=== PATIENT | male | born 1940 | race African-American/Black ===

== ENCOUNTER 2016-04-13 05:52 | Day surgery (SDC) | payer BC ==
--- NOTE | ~2016-04-13 | OP ---
Record Of [facility] [address] [place]. [address] NAME: GUILLAUME ANTHONY : 36 [place] [facility] [place] [id number] AGE: 75 ADM/REG DATE : 04/13/16 MR#: [id number] REPORT SERV DATE: 04/13/16 DICTATED BY: RISA LYNN DATE: 04/13/16 REPORT STATUS : Draft TRANSCRIBED BY: MODL DATE: 04/13/16 DATE OF PROCEDURE: 04/13/2016 PREOPERATIVE DIAGNOSIS: End-stage renal disease. POSTOPERATIVE DIAGNOSIS: End-stage renal disease. PROCEDURE PERFORMED: Creation of left brachiobasilic arteriovenous fistula. SURGEON: Risa Lynn MD. RESIDENT: Hayden Sweeney MD ANESTHESIA: MAC plus local. ESTIMATED BLOOD LOSS: 10 mL. IV FLUIDS: 300 mL of crystalloids. SPECIMENS: None. DRAINS: None. COMPLICATIONS: None. FINDINGS: The patient's left basilic vein was chosen to be suitable during intraoperative ultrasound and end-to-side left brachiobasilic arteriovenous fistula was created. At the completion there was great thrill, as well as the patient still had an excellent radial pulse. INDICATIONS FOR PROCEDURE: This is a 75-year-old male, who suffers from end-stage renal disease, who needs a long-term hemodialysis and access. The patient is currently dialyzing through a right IJ PermCath, so, the above-stated procedure was offered to the patient. Risks, benefits, and alternatives were explained. The patient expressed good understanding and wished to proceed forward with the procedure. DESCRIPTION OF PROCEDURE: After informed consent was obtained, the patient was taken back to the operating theatre, the patient was laid on the operating table in supine position. The patient was given IV analgesia and anaesthesia, once the patient was adequately sedated. The left arm was then prepped and draped in a standard fashion. A formal time-out was then performed, appropriate preoperative antibiotics were administered, all present in the operating room were in agreement, and we elected to proceed with the procedure. We began by performing an intraoperative ultrasound, looking at the patient's radial artery, cephalic vein, brachial artery, and basilic vein. The cephalic vein did not seem adequate for successful AV fistula. The basilic vein had an adequate size, good compressibility, Record Of Operation [facility] [address] [place]. [address] NAME: GUILLAUME ANTHONY : 36 [place] : [place] [facility] [place]#: [id number] AGE: 75 ADM/REG DATE : 04/13/16 MR#: [id number] REPORT SERV DATE: 04/13/16 DICTATED BY: RISA LYNN DATE: 04/13/16 REPORT STATUS : Draft TRANSCRIBED BY: MODL DATE: 04/13/16 therefore, it was chosen. We began by administering local anesthetic, medial aspect of the left upper extremity. An oblique incision was then made in the medial aspect of the left upper extremity over the marked course of the basilic vein and brachial artery. We then used a combination of electrocautery, sharp, and blunt dissection to dissect down and identify the brachial artery and the basilic vein. Both of these were mobilized proximally and distally. IV heparin was then administered. Branches of the basilic vein and of the brachial artery near the site of where our anastomosis would be were suture ligated with 3-0 silk suture. We then tied off the distal end of the basilic vein and sharply transected the basilic vein and proximally to this suture ligation. The basilic vein was then flushed with heparinized saline with an 11 blade to make an arteriotomy in our brachial artery. We then spatulated the end of the basilic vein, as well as heparin and saline flushed it. We then clamped the brachial artery proximally and distally with Profunda clamps. A longitudinal arch arteriotomy was then made in the brachial artery. We then performed our arteriovenous anastomosis in an end-to-side fashion using a running 6-0 Prolene on a BV-1 needle. Just prior to the completion of the anastomosis it was flushed and the anastomosis was then completed and great thrill was noted. We then noted the radial pulse to be palpable distally. We then reapproximated the subcutaneous tissue and fascia of all our incision sites with 3-0 Vicryl in a simple interrupted fashion. We then reapproximated the skin edges with 4-0 Monocryl in a running subcuticular stitch fashion. Dermabond was then placed over the incision site. Hemostasis had been achieved. Again, palpable thrill was appreciated at the end, as well as palpable radial pulse. Sterile drapes were then broken down. The patient was awake and vital signs were stable. The patient was transferred to recovery room in stable condition. DICTATED BY: MD RUPESH Mejias/DANIELA Risa Lynn MD / [id number] CC: MD JONATHAN Bey TYE
[~2016-04-13 05:52] MED LIST: ASAB PO; DIOVAN320 MG PO; DRAMAMINE25 MG PO; FLOMAX4 PO; HCTZ25B PO; HYT5 PO; LOP100 PO; NORV5 PO; PRILO PO; PROTONIX PO; RENA-VITE PO; ROCALTROL0.5 MCG PO; SODBICAR10 PO; TRAZ50 PO; Z300 PO
[2016-04-13 06:30] LABS: HEMATOCRIT 27.5 % (40.0-51.0); HEMOGLOBIN 8.8 g/dL (13.6-17.8)
[2016-04-13 06:41] LABS: CALCIUM, SERUM 9.4 MG/DL (8.5-10.4); CHLORIDE, SERUM 101 MMOL/L (96-112); GFR AFRICAN AMERICAN 12 ML/MIN (>=60); GFR NON AFRICAN AMERICAN 11 ML/MIN (>=60); GLUCOSE, SERUM 90 MG/DL (60-99); POTASSIUM, SERUM 3.5 MMOL/L (3.5-5.3); SODIUM, SERUM 139 MMOL/L (135-148)
[2016-04-13 06:42] LABS: BUN (BLOOD UREA NITROGEN) 24 MG/DL (6-23); CO2 (CARBON DIOXIDE) 30 MMOL/L (24-34); CREATININE 4.89 MG/DL (0.70-1.30)
== END 2016-04-13 16:18 | disposition home or self-care (01) ==
LOC: SDC 05:52
PROVIDERS: Student in an Organized Health Care Education/Training Program
PROC: 03180ZD Bypass Left Brachial Artery to Upper Arm Vein, Open Approach (ICD-10-PCS; principal; 2016-04-13 07:45)
DX: I12.0 Hypertensive chronic kidney disease with stage 5 chronic kidney disease or end stage renal disease (principal); N18.6 End stage renal disease; Z99.2 Dependence on renal dialysis; Z98.890 Other specified postprocedural states; Z87.891 Personal history of nicotine dependence; Z79.82 Long term (current) use of aspirin; Z79.899 Other long term (current) drug therapy
CPT/HCPCS: 80048; 85014; 85018; 93005; J0690; J3010

== ENCOUNTER 2016-05-30 12:23 | Day surgery (SDC) | payer BC ==
--- NOTE | ~2016-05-30 | OP ---
Record Of Operation [facility] [address] [place]. [address] NAME: GUILLAUME ANTHONY : 36 STATUS : [facility]#: [id number] AGE: 75 ADM/REG DATE : 05/30/16 MR#: [id number] REPORT SERV DATE: 05/30/16 DICTATED BY: RISA LYNN DATE: 05/30/16 REPORT STATUS : Draft TRANSCRIBED BY: DANIELA DATE: 05/30/16 DATE OF PROCEDURE: 05/30/2016 SOLAR INSTALLER TECHNICIAN: Mi. PREPROCEDURE DIAGNOSES: 1. End-stage renal disease. 2. Left brachiobasilic fistula. POSTPROCEDURE DIAGNOSES: 1. End-stage renal disease. 2. Left brachiobasilic fistula. PROCEDURE PERFORMED: Elevation of brachiobasilic fistula. ANESTHETIC: MAC and local. SPECIMENS: None. ESTIMATED BLOOD LOSS: Minimal. COMPLICATIONS: None. DESCRIPTION OF PROCEDURE: The patient was brought to the operating room, placed in supine position on the operating room table. The patient had MAC anesthetic without complication. Left arm was prepped and draped in sterile fashion. A time-out was performed. Identified the correct patient, procedure, and site. We began by using ultrasound to map out the course of the AV fistula. We anesthetized the skin with local anesthetic and made an incision longitudinally along the arm. We dissected down through the subcutaneous tissue and fat with the cautery. We divided the fascia with scissors. We found the fistula along its course next of the brachial artery. We dissected the fistula along its course taking down branches with interrupted silk suture. We completed the dissection cephalad and caudad and a long enough portion of a basilic fistula was freed up to come to the surface. We irrigated the subcutaneous tissues. We then closed the fascia layer with running 2-0 Vicryl suture. The deep dermal layer was closed with interrupted 3-0 Vicryl suture. The fistula now lay immediately subjacent to the incision. We then closed the skin with running subcuticular Monocryl and Dermabond. The patient tolerated the procedure well. He was awakened and transferred to recovery in stable condition. AN/DANIELA Risa Lynn MD Record Of Operation [place] [id number] [facility] [place]. [address] NAME: GUILLAUME ANTHONY : 36 STATUS : [facility] PAT#: [id number] AGE: 75 ADM/REG DATE : 05/30/16 MR#: [id number] REPORT SERV DATE: 05/30/16 DICTATED BY: RISA LYNN DATE: 05/30/16 REPORT STATUS : Draft TRANSCRIBED BY: DANIELA DATE: 05/30/16 / [id number] CC: MD JONATHAN Bey TYE
[2016-05-30 12:52] LABS: HEMATOCRIT 32.3 % (40.0-51.0); HEMOGLOBIN 10.5 g/dL (13.6-17.8)
[2016-05-30 13:02] LABS: CALCIUM, SERUM 9.7 MG/DL (8.5-10.4); CHLORIDE, SERUM 98 MMOL/L (96-112); CO2 (CARBON DIOXIDE) 27 MMOL/L (24-34); GFR AFRICAN AMERICAN 6 ML/MIN (>=60); GFR NON AFRICAN AMERICAN 5 ML/MIN (>=60); GLUCOSE, SERUM 95 MG/DL (60-99); POTASSIUM, SERUM 3.9 MMOL/L (3.5-5.3); SODIUM, SERUM 135 MMOL/L (135-148)
[2016-05-30 13:03] LABS: BUN (BLOOD UREA NITROGEN) 49 MG/DL (6-23); CREATININE 8.97 MG/DL (0.70-1.30)
== END 2016-05-30 17:14 | disposition home or self-care (01) ==
LOC: SDC 12:23
PROVIDERS: Student in an Organized Health Care Education/Training Program
PROC: 03180ZD Bypass Left Brachial Artery to Upper Arm Vein, Open Approach (ICD-10-PCS; principal; 2016-05-30 14:30)
DX: I12.0 Hypertensive chronic kidney disease with stage 5 chronic kidney disease or end stage renal disease (principal); N18.6 End stage renal disease; D63.1 Anemia in chronic kidney disease; M10.9 Gout, unspecified; K21.9 Gastro-esophageal reflux disease without esophagitis; Z88.8 Allergy status to other drugs, medicaments and biological substances; Z87.891 Personal history of nicotine dependence; Z98.890 Other specified postprocedural states
CPT/HCPCS: 36832; 80048; 85014; 85018; 93005; A9270-GY; J0690; J2370; J3010